=== PATIENT | female | born 1925 | race Caucasian/White ===

== ENCOUNTER 2017-11-14 11:19 | Inpatient (IN) | payer MEDICARE ==
[~2017-11-14] VITALS: Ht 157.5 cm; Wt 69.9 kg
[2017-11-14] VITALS (13 sets, daily range): BP systolic 111–132; BP diastolic 53–70
[2017-11-14] MEDS ORDERED: SODIUM CHLORIDE 0.9% 1000ML 1,000 ML IV STA (11:29)
[2017-11-14 11:53] LABS: BASOPHILS # (AUTO) 0.1 (0.0-0.1); BASOPHILS % 0.8 % (0.0-1.0); EOSINOPHILS # (AUTO) 0.5 (0.0-0.4); EOSINOPHILS % 5.9 % (0.0-6.0); HEMATOCRIT 32.8 % (34.2-44.1); HEMOGLOBIN 11.3 g/dL (12.0-16.0); LYMPHOCYTES # (AUTO) 1.9 (1.0-3.2); LYMPHOCYTES % 24.9 % (18.0-39.1); MEAN CORPUSCULAR HEMOGLOBIN 31.6 pg (28-32); MEAN CORPUSCULAR HGB CONC 34.5 g/dL (31-35); MEAN CORPUSCULAR VOLUME 91.6 fL (81-99); MONOCYTES # (AUTO) 0.8 (0.2-0.8); MONOCYTES % 10.2 % (4.4-11.3); NEUTROPHILS # (AUTO) 4.4 (2.1-6.9); NEUTROPHILS % 57.5 % (38.7-80.0); PLATELET COUNT 333 x10e3/uL (140-360); RED BLOOD COUNT 3.58 x10e6/uL (3.6-5.1); RED CELL DISTRIBUTION WIDTH 13.6 % (11.7-14.4)
[2017-11-14] MEDS ORDERED: LIDOCAINE 1% W/EPINEPHRINE 20 ML VIAL ONE (11:53)
[2017-11-14 12:05] LABS: INR 0.93; PROTHROMBIN TIME 11.7 seconds (11.9-14.5)
[2017-11-14 12:06] LABS: PARTIAL THROMBOPLASTIN TIME 28.6 seconds (23.8-35.5)
--- NOTE | 2017-11-14 12:08 | Diagnostic Imaging Report ---
Examination: Single AP view of the chest. COMPARISON: None. INDICATION: Pneumothorax IMPRESSION: 1. Lines and Tubes: None 2. Lungs are well-inflated. Large right-sided pneumothorax. Blunting of the right lateral costophrenic sulcus with obscuration of the left hemidiaphragm, consistent with right pleural effusion and associated atelectasis. Mild prominence of the interstitial markings in the left lung, likely reflecting chronic interstitial changes. 3. Cardiomediastinal silhouette is normal. Pulmonary vasculature is normal. 4. No acute bony abnormalities. 5. Findings discussed with EVANGELISTA Estevez at ER December 15, 2017 at 1205 hours Signed by: Dr. Emiliano Matthew M.D. on 11/14/2017 12:05 PM
[2017-11-14 12:12] LABS: ALBUMIN 4.2 g/dL (3.5-5.0); ALBUMIN/GLOBULIN RATIO 1.4 (0.8-2.0); ALKALINE PHOSPHATASE 83 IU/L (40-150); ANION GAP 17.3 mmol/L (8-16); BLOOD UREA NITROGEN 43 mg/dL (7-26); BUN/CREATININE RATIO 23 (6-25); CALCIUM 9.2 mg/dL (8.4-10.2); CARBON DIOXIDE 16 mmol/L (22-29); CHLORIDE 94 mmol/L (98-107); CREATINE KINASE 100 IU/L (29-168); CREATININE, SERUM 1.87 mg/dL (0.57-1.11); EST GLOMERULAR FILTRATION RATE 25 ML/MIN (60-); GLUCOSE 101 mg/dL (74-118); POTASSIUM 3.3 mmol/L (3.5-5.1); SODIUM 124 mmol/L (136-145)
[2017-11-14] MEDS ORDERED: HYDROMORPHONE 1MG/1ML INJ ONE ×2 (12:14→13:33)
[2017-11-14 12:15] LABS: ALANINE AMINOTRANSFERASE < 6 IU/L (0-55)
[2017-11-14] MEDS ORDERED: LORAZEPAM INJ 2 MG/ML VIAL ONE ×2 (12:15→19:32)
[2017-11-14] MEDS ORDERED: HYDROMORPHONE 1MG/1ML INJ IV STA ×2 (12:36→13:22)
[2017-11-14] MEDS ORDERED: LORAZEPAM INJ 2 MG/ML VIAL IV ONE (12:45)
--- NOTE | 2017-11-14 13:02 | Diagnostic Imaging Report ---
Examination: Single AP view of the chest. COMPARISON: 11/14/2017 at 11:29 AM INDICATION: Post chest tube placement DISCUSSION: See impression IMPRESSION: 1. Interval placement of a right-sided chest tube, with the tip projecting over the lateral aspect of the right upper hemithorax. The sidehole projects at the level of the lateral thoracic wall. Advancement by 3-4 cm is suggested. 2. Persistent large right hydropneumothorax with leftward mediastinal shift. Findings were discussed with Dr. Lizarraga of the emergency center at 12:55 PM 11/14/2017. Signed by: Dr. Johnson Spears M.D. on 11/14/2017 12:59 PM
--- NOTE | 2017-11-14 13:48 | Diagnostic Imaging Report ---
Examination: Single AP view of the chest. COMPARISON: AP chest 11/14/2017 INDICATION: Pneumothorax status post chest tube placement IMPRESSION: 1. Lines and Tubes: Interval advancement of the previously visualized chest tube by approximately 2 cm, with distal tip projecting over the lateral aspect of the right upper hemithorax. 2. Persistent large hydropneumothorax. Interval improvement in leftward mediastinal shift 3. Cardiomediastinal silhouette is normal. Pulmonary vasculature is normal. 4. No acute bony abnormalities. Signed by: Dr. Emiliano Matthew M.D. on 11/14/2017 1:45 PM
[2017-11-14] MEDS: ONDANSETRON HCL INJ 2 MG/ML VIAL IV PRN ×2 (15:00→15:10)
[2017-11-14] MEDS ORDERED: ONDANSETRON HCL INJ 2 MG/ML VIAL ONE (15:04)
[2017-11-14] MEDS ORDERED: HYDROMORPHONE 1MG/1ML INJ IV PRN (15:15)
[2017-11-14] MEDS ORDERED: ONDANSETRON HCL INJ 2 MG/ML VIAL IV STA (16:24)
[2017-11-14] MEDS ORDERED: MORPHINE SULFATE 2 MG/ML SYR IV STA (16:24)
[2017-11-14] MEDS ORDERED: AMLODIPINE BESYL5 MG PO (16:39)
[2017-11-14] MEDS ORDERED: LEVOTHYROXINE75 MCG PO (16:39)
[2017-11-14] MEDS ORDERED: TRIAMTERENE-HCTZ1 EA PO (16:39)
[2017-11-14] MEDS ORDERED: PROPRANOLOL HCL40 MG PO (16:39)
[2017-11-14] MEDS ORDERED: TYLENOL EXTRA500 MG PO (16:39)
[2017-11-14] MEDS ORDERED: NEXIUM40 MG PO (16:39)
[2017-11-14] MEDS ORDERED: [UNRECOGNIZED DRUG - OTHER] PO (16:39)
[2017-11-14] MEDS ORDERED: ALPRAZOLAM0.25 MG PO (16:39)
[2017-11-14] MEDS ORDERED: SINEMET 25-1001 EACH PO (16:39)
[2017-11-14] MEDS ORDERED: PROPRANOLOL HCL80 MG PO (16:39)
[2017-11-14] MEDS ORDERED: MELATONIN3 MG PO (16:39)
[2017-11-14] MEDS ORDERED: AMITIZA24 MCG PO (16:39)
[2017-11-14] MEDS: SODIUM CHLORIDE 0.9% 1000ML 1,000 ML IV SCH (16:48)
[2017-11-14] MEDS ORDERED: HYDROMORPHONE 1MG/1ML INJ IV ONE (18:55)
--- NOTE | 2017-11-14 19:27 | Diagnostic Imaging Report ---
EXAMINATION: CHEST SINGLE (PORTABLE) 11/14/2017 6:51 PM COMPARISON: Multiple prior radiographs on 11/14/2017 INDICATION: Patient pulled out chest tube DISCUSSION: LINES: Interval removal of right chest tube LUNGS AND PLEURA: Unchanged large right hydropneumothorax. Right lung collapse may be slightly worse than before. No mediastinal shift. The left lung is clear. HEART AND MEDIASTINUM: The cardiomediastinal silhouette is unremarkable. Atherosclerotic calcification of the aorta BONES AND SOFT TISSUES: No acute osseous lesion. The soft tissues are normal. IMPRESSION: Status post removal of the right chest tube with persistent large right hydropneumothorax. No significant mediastinal shift. Ashok Arriola MD Signed by: Dr. Ashok Arriola M.D. on 11/14/2017 7:24 PM
--- NOTE | 2017-11-14 20:20 | Diagnostic Imaging Report ---
EXAMINATION: CHEST SINGLE (PORTABLE) 11/14/2017 7:43 PM COMPARISON: Multiple prior radiographs from 11/14/2017 INDICATION: Reinsertion of chest tube DISCUSSION: LINES: Right sided chest tube has been replaced. The tip projects over the right lung apex LUNGS AND PLEURA: There has been reexpansion of the right lung. There may be a tiny residual right apical pneumothorax. Small right pleural effusion is unchanged. The left lung is clear. HEART AND MEDIASTINUM: The cardiomediastinal silhouette is unremarkable. BONES AND SOFT TISSUES: No acute osseous lesion. The soft tissues are normal. IMPRESSION: Status post reinsertion of the right chest tube with good reexpansion of the right lung. There may be a tiny residual right apical pneumothorax. Small right pleural effusion is unchanged. Ashok Arriola MD Signed by: Dr. Ashok Arriola M.D. on 11/14/2017 8:17 PM
[2017-11-15] VITALS (61 sets, daily range): BP systolic 93–147; BP diastolic 40–80
--- NOTE | 2017-11-15 00:55 | Consultation ---
DATE OF CONSULTATION: No dictation, length (00:01). Job#: [id number] CHARLIE
--- NOTE | 2017-11-15 01:45 | Consultation ---
DATE OF CONSULTATION: November 14, 2017 PULMONARY CONSULTATION REASON FOR THE CONSULT: Pneumothorax. HPI: Ms. Jaramillo is 89-year-old female. She had a fall a month ago and saw Dr. Ruano in the office and she was having progressive shortness of breath and weakness. In the emergency room, she was found to have large right-sided pneumothorax and patient underwent a chest tube placement. She is currently denying any complaints of chest pain, nausea, vomiting. REVIEW OF SYSTEMS: GENERAL: Denies any fever, chills. HEAD: Denies any head trauma. ENT: Denies any earache. CVS: Denies any chest pain. RESPIRATORY: Shortness of breath. GI: Denies any nausea, vomiting. The rest of the review of systems are negative except as in HPI. PAST MEDICAL HISTORY: Hypertension, diabetes patient reports. PAST SURGICAL HISTORY: Multiple surgeries, exploratory laparotomy for bowel perforation. Patient had thyroid surgery. Also has surgery for renal cancer. FAMILY AND SOCIAL HISTORY: She does not smoke, does not drink. PHYSICAL EXAMINATION: VITAL SIGNS: Temperature 98.8, pulse of 84, blood pressure 154/69, respiratory rate of 18, O2 sat 94% on 3 liters. HEENT: Head atraumatic, normocephalic. NECK: Supple. CHEST: Reduced air entry on the right side, otherwise clear to auscultation bilaterally. HEART: S1 and S2 audible. ABDOMEN: Soft, nontender, nondistended. EXTREMITIES: No pedal edema. NEUROLOGICAL: Awake and alert. No focal neurologic deficit. LABS: White count of 7000, hemoglobin 11.3, platelets 333,000. Chemistry: Sodium 124, potassium 3.3, chloride 94, BUN 43, creatinine 1.87. ASSESSMENT: Ms. Jaramillo is 89-year-old female who presented after a fall. The fall was a month ago. Patient has chest tube placement. Post chest tube placement, the x-ray is showing that possibly she has trapped lung. Chest tube has been dislodged now and is placing another chest tube. PLAN: 1. Chest tube for pneumothorax. Likely has trapped lung because of the trauma a month ago. I will do a CT scan to further evaluate. 2. Continue analgesics for pain control. 3. Hyponatremia and acute renal insufficiency, currently stable. Continue the patient on IV hydration. Thank you for this consult. Job#: [id number]
[2017-11-15] MEDS: SODIUM CHLORIDE 0.9% 1000ML 1,000 ML IV SCH ×2 (03:02→13:31)
[2017-11-15 04:47] LABS: BASOPHILS % 0.5 % (0.0-1.0); EOSINOPHILS # (AUTO) 0.4 (0.0-0.4); EOSINOPHILS % 5.1 % (0.0-6.0); HEMATOCRIT 30.2 % (34.2-44.1); HEMOGLOBIN 10.2 g/dL (12.0-16.0); LYMPHOCYTES # (AUTO) 1.4 (1.0-3.2); LYMPHOCYTES % 17.1 % (18.0-39.1); MEAN CORPUSCULAR HEMOGLOBIN 31.6 pg (28-32); MEAN CORPUSCULAR HGB CONC 33.8 g/dL (31-35); MEAN CORPUSCULAR VOLUME 93.5 fL (81-99); MONOCYTES # (AUTO) 0.7 (0.2-0.8); NEUTROPHILS # (AUTO) 5.4 (2.1-6.9); NEUTROPHILS % 67.8 % (38.7-80.0); PLATELET COUNT 298 x10e3/uL (140-360); RED BLOOD COUNT 3.23 x10e6/uL (3.6-5.1)
[2017-11-15 05:13] LABS: ANION GAP 14.7 mmol/L (8-16); CALCIUM 8.2 mg/dL (8.4-10.2); CREATININE, SERUM 1.45 mg/dL (0.57-1.11)
[2017-11-15 05:23] LABS: POTASSIUM 2.7 mmol/L (3.5-5.1)
[2017-11-15] MEDS: POTASSIUM CHLORIDE 20 MEQ TAB CR PO SCH ×2 (05:55→11:48)
--- NOTE | 2017-11-15 06:04 | Diagnostic Imaging Report ---
CHEST SINGLE (PORTABLE), 11/15/2017 7:00 AM Technique: CHEST SINGLE (PORTABLE) Comparison: Previous day Clinical history: Pneumothorax Findings: Stable appearance of the cardiac silhouette, bones, soft tissues. Prior vertebroplasty. Impression: 1. Lines/Tubes: Stable right chest tube. 2. Persistent small right hydropneumothorax with tiny apical air component. Associated right basilar atelectasis or reexpansion edema. Signed by: Dr Norma Boyd MD on 11/15/2017 6:01 AM
[2017-11-15] MEDS ORDERED: POTASSIUM CHLORIDE 20 MEQ TAB CR PO ONE (11:47)
[2017-11-15] MEDS: FAMOTIDINE 20 MG/2 ML VIAL IV SCH ×2 (11:48→20:36)
[2017-11-15] MEDS: ACETAMINOPHEN 325 MG TAB PO PRN (11:48)
[2017-11-15] MEDS ORDERED: FAMOTIDINE 20 MG/2 ML VIAL IV SCH (17:00)
[2017-11-15] MEDS: ALPRAZOLAM 0.25 MG TAB PO SCH (20:36)
[2017-11-15] MEDS: PROPRANOLOL HCL 40 MG TAB PO SCH (20:44)
[2017-11-15] MEDS: CARBIDOPA/LEVODOPA 25/250 TAB PO SCH (20:44)
[2017-11-15] MEDS ORDERED: LORAZEPAM INJ 2 MG/ML VIAL IV ONE (22:30)
[2017-11-16] VITALS (21 sets, daily range): BP systolic 109–185; BP diastolic 60–106
[2017-11-16] MEDS: SODIUM CHLORIDE 0.9% 1000ML 1,000 ML IV SCH ×2 (01:00→17:24)
[2017-11-16 04:46] LABS: BASOPHILS % 0.6 % (0.0-1.0); EOSINOPHILS # (AUTO) 0.4 (0.0-0.4); HEMATOCRIT 27.5 % (34.2-44.1); HEMOGLOBIN 9.2 g/dL (12.0-16.0); LYMPHOCYTES # (AUTO) 1.3 (1.0-3.2); LYMPHOCYTES % 19.8 % (18.0-39.1); MEAN CORPUSCULAR HEMOGLOBIN 31.2 pg (28-32); MEAN CORPUSCULAR HGB CONC 33.5 g/dL (31-35); MEAN CORPUSCULAR VOLUME 93.2 fL (81-99); MONOCYTES # (AUTO) 0.6 (0.2-0.8); MONOCYTES % 9.5 % (4.4-11.3); NEUTROPHILS # (AUTO) 4.2 (2.1-6.9); NEUTROPHILS % 63.6 % (38.7-80.0); PLATELET COUNT 267 x10e3/uL (140-360); RED BLOOD COUNT 2.95 x10e6/uL (3.6-5.1); RED CELL DISTRIBUTION WIDTH 14.1 % (11.7-14.4)
[2017-11-16 05:09] LABS: ANION GAP 12.3 mmol/L (8-16); CALCIUM 8.2 mg/dL (8.4-10.2); CREATININE, SERUM 0.95 mg/dL (0.57-1.11); MAGNESIUM 1.4 MG/DL (1.3-2.1); POTASSIUM 3.3 mmol/L (3.5-5.1)
[2017-11-16] MEDS: LEVOTHYROXINE SODIUM 75 MCG TAB PO SCH (05:29)
[2017-11-16] MEDS: ACETAMINOPHEN 325 MG TAB PO PRN ×2 (05:46→15:00)
[2017-11-16] MEDS: FAMOTIDINE 20 MG/2 ML VIAL IV SCH ×2 (08:23→20:29)
[2017-11-16] MEDS: AMLODIPINE BESYLATE 5 MG TAB PO SCH (08:23)
[2017-11-16] MEDS: CARBIDOPA/LEVODOPA 25/250 TAB PO SCH ×3 (08:23→20:29)
[2017-11-16] MEDS: LUBIPROSTONE 24 MCG CAP PO SCH (08:23)
[2017-11-16] MEDS: ALPRAZOLAM 0.25 MG TAB PO SCH ×2 (08:24→17:24)
--- NOTE | 2017-11-16 09:38 | Diagnostic Imaging Report ---
PROCEDURE: A single AP view of the chest. COMPARISON: Patients [facility], DX, CHEST SINGLE (PORTABLE), 11/15/2017, 5:26. INDICATIONS: CHEST PAIN FINDINGS: Lines/tubes: Right-sided chest tube has been withdrawn and tip now appears to be outside of the pleural space. Lungs: No pulmonary edema. Focal opacity in the right lung base likely representing pneumonia versus atelectasis. Pleura: Small right pleural effusion. No large pneumothorax. Heart and mediastinum: The heart and the mediastinum are unremarkable. Bones: No acute bony abnormality. IMPRESSION: 1. Right-sided chest tube has been withdrawn and now lies outside of the pleural space. 2. persistent right basilar opacity compatible with atelectasis most likely. Eleazar Montoya D.O. Dictated by: Eleazar Montoya D.O. on 11/16/2017 at 9:44 Electronically approved by: Eleazar Montoya D.O. on 11/16/2017 at 9:44
[2017-11-16] MEDS ORDERED: FLUCONAZOLE 100 MG TAB PO NR (10:00)
[2017-11-16] MEDS: POTASSIUM CHLORIDE 20 MEQ TAB CR PO SCH (10:41)
--- NOTE | 2017-11-16 12:29 | Diagnostic Imaging Report ---
EXAMINATION: CT scan of the chest without contrast. TECHNIQUE: Spiral CT images of the chest were performed from the lung apices to the level of the adrenal glands. No intravenous contrast was administered . Coronal and sagittal reformatted images were obtained. COMPARISON: Single AP chest 11/16/2017 CLINICAL HISTORY:Pneumothorax DISCUSSION: ABSENCE OF INTRAVENOUS CONTRAST DECREASES SENSITIVITY FOR DETECTION OF FOCAL LESIONS AND VASCULAR PATHOLOGY. LINES/TUBES: Right-sided chest tube has distal tip in the chest wall soft tissues/subpectoral region (series 3, image 34), outside the lung. LUNGS AND AIRWAYS: Moderate compressive atelectasis of the right lower lobe. Linear opacities in the right upper lobe and right middle lobe likely reflect subsegmental atelectasis. Mild compressive atelectasis of the left lower lobe. Patchy wedge-shaped densities in the right apex measure fluid density and likely represent residual fluid. No pulmonary nodules or masses. Airways are clear, without endobronchial lesions. PLEURA: Moderate right and small left pleural effusions. No significant pneumothorax is visualized. HEART AND MEDIASTINUM: 1.0 cm hypodense nodule in the left thyroid lobe (series 2, image 19). Mild cardiomegaly. Atherosclerotic calcification of the aortic valves, coronary arteries and thoracic aorta. Aorta is not aneurysmal. Main pulmonary artery is normal in caliber. LYMPH NODES: There is no mediastinal, hilar or axillary lymphadenopathy. ABDOMEN: Limited unenhanced views of the upper abdomen show no abnormality within the visualized liver, spleen, pancreas, or left kidney. Thickening of the left adrenal gland, without discrete focal lesion.. BONES AND SOFT TISSUES: No aggressive lytic lesions. Mottled appearance of the thoracic and lumbar vertebral bodies, which may be secondary to marked osteopenia. Vertebral plasty changes at L1. Anterior wedge deformity of the T11 vertebral body. Soft tissues are unremarkable. IMPRESSION: 1. Right-sided chest tube has distal tip in the right chest wall soft tissues/subpectoral area, outside the lung. 2. No pneumothorax is visualized. 3. Moderate right and small left pleural effusions with moderate right and mild left lower lobe compressive atelectasis. 4. Subsegmental atelectasis in the right upper lobe and right middle lobe. 5. 1.0 cm nodule in the left lower lobe. Dedicated thyroid ultrasound be helpful for further evaluation, if clinically indicated. 6. Mottled appearance of the thoracic and lumbar vertebral bodies is likely secondary to marked osteopenia, given the prior compression deformities. Consider bone scan, particularly if there is prior history or clinical concern for neoplasm. Signed by: Dr. Emiliano Matthew M.D. on 11/16/2017 12:25 PM
[2017-11-16] MEDS: ONDANSETRON HCL INJ 2 MG/ML VIAL IV PRN (19:05)
[2017-11-16] MEDS ORDERED: HALOPERIDOL LACTATE 5 MG/ML VIAL IV ONE (20:15)
[2017-11-16] MEDS: PROPRANOLOL HCL 40 MG TAB PO SCH (20:29)
[2017-11-17] VITALS (24 sets, daily range): BP systolic 123–176; BP diastolic 59–99
[2017-11-17] MEDS: ACETAMINOPHEN 325 MG TAB PO PRN ×2 (01:55→19:07)
[2017-11-17] MEDS: SODIUM CHLORIDE 0.9% 1000ML 1,000 ML IV SCH (02:29)
[2017-11-17 05:31] LABS: ANION GAP 13.5 mmol/L (8-16); BLOOD UREA NITROGEN 14 mg/dL (7-26); BUN/CREATININE RATIO 17 (6-25); CALCIUM 8.5 mg/dL (8.4-10.2); CARBON DIOXIDE 20 mmol/L (22-29); CHLORIDE 106 mmol/L (98-107); CREATININE, SERUM 0.83 mg/dL (0.57-1.11); EST GLOMERULAR FILTRATION RATE > 60 ML/MIN (60-); GLUCOSE 101 mg/dL (74-118); POTASSIUM 3.5 mmol/L (3.5-5.1); SODIUM 136 mmol/L (136-145)
[2017-11-17] MEDS: LEVOTHYROXINE SODIUM 75 MCG TAB PO SCH (06:07)
[2017-11-17] MEDS: ONDANSETRON HCL INJ 2 MG/ML VIAL IV PRN (07:41)
[2017-11-17] MEDS: LUBIPROSTONE 24 MCG CAP PO SCH (08:00)
[2017-11-17] MEDS: FAMOTIDINE 20 MG/2 ML VIAL IV SCH ×2 (08:36→22:00)
[2017-11-17] MEDS: CARBIDOPA/LEVODOPA 25/250 TAB PO SCH ×3 (08:37→22:00)
[2017-11-17] MEDS: ALPRAZOLAM 0.25 MG TAB PO SCH ×2 (08:37→16:05)
[2017-11-17] MEDS: POTASSIUM CHLORIDE 20 MEQ TAB CR PO SCH (08:37)
[2017-11-17] MEDS: AMLODIPINE BESYLATE 5 MG TAB PO SCH (08:37)
--- NOTE | 2017-11-17 09:13 | Diagnostic Imaging Report ---
PROCEDURE: A single AP view of the chest. COMPARISON: Chest CT 11/16/17 and chest radiograph 11/16/17. INDICATIONS: PLEURAL EFFUSION FINDINGS: Lines/tubes: Right sided chest tube, previously noted to be outside the pleural space, has been removed. Lungs/pleura: The lungs are well inflated. Moderate right and small left pleural effusion with associated bibasilar opacities, likely atelectasis. No evidence of pulmonary edema or pneumothorax. Heart and mediastinum: The cardiomediastinal silhouette is unchanged. Bones: No acute bony abnormality. IMPRESSION: Interval removal of right sided chest tube. No evidence of pneumothorax. Similar appearance of moderate right and small left pleural effusions with associated bibasilar opacities, likely atelectasis. Dictated by: ERIN MONTANA M.D. on 11/17/2017 at 9:19 Electronically approved by: ERIN MONTANA M.D. on 11/17/2017 at 9:19
[2017-11-17] MEDS: DOCUSATE SODIUM 100 MG CAP PO SCH ×2 (09:28→16:05)
[2017-11-17 09:45] LABS: CLARITY,URINE CLOUDY (CLEAR); COLOR,URINE YELLOW (YELLOW); LEUKOCYTE ESTERASE ,URINE 2+ (NEGATIVE); NITRITE,URINE NEGATIVE (NEGATIVE)
[2017-11-17 09:46] LABS: BILIRUBIN,URINE NEGATIVE (NEGATIVE); KETONES,URINE NEGATIVE (NEGATIVE); PROTEIN,URINE DIPSTICK 2+ (NEGATIVE); URINE UROBILINOGEN 0.2 mg/dL (0.2 - 1)
[2017-11-17] MEDS: QUETIAPINE FUMARATE 25 MG TAB PO SCH ×2 (09:58→22:00)
[2017-11-17 10:22] LABS: AMORPHOUS SEDIMENT,URINE RARE (FEW); BACTERIA,URINE FEW /HPF; EPITHELIAL CELLS,URINE FEW /LPF; WBC,URINE (MAN) 21-50 /HPF (0-5)
[2017-11-17] MEDS ORDERED: LIDOCAINE HCL 2% LOCAL 20 ML VIAL ONE (13:32)
[2017-11-17 16:33] LABS: BODY FLUID APPEARANCE CLOUDY; BODY FLUID COLOR RED; BODY FLUID TYPE PLEURAL
[2017-11-17 17:14] LABS: RBC,BODY FLUID 100980 cells/uL; WBC,BODY FLUID 297 cells/uL
[2017-11-17 17:39] LABS: EOSINOPHILS,BODY FLUID 33 %; LYMPHOCYTES,BODY FLUID 16 %; MONO/MACROPHG,BODY FLUID 2 %; NEUTROPHILS,BODY FLUID 28 %; OTHER CELLS,BODY FLUID 21 %
--- NOTE | 2017-11-17 17:55 | Diagnostic Imaging Report ---
EXAMINATION: CHEST SINGLE (PORTABLE) INDICATION: \S\f/u thora to right \[id number] \S\[id number] COMPARISON: Chest radiograph 11/17/[address] chest 11/16/2017 FINDINGS: AP view TUBES and LINES: None. LUNGS: Lungs are well inflated. Bibasilar atelectasis, increased on the right. There is no evidence of pneumonia or pulmonary edema. PLEURA: Decreased size of now small of the right pleural effusion, status post thoracentesis. Unchanged small left pleural effusion. Interval decrease in size of the right apical pneumothorax, now with upper 5.2 cm compared to 7.6 cm on prior exam. HEART AND MEDIASTINUM: The cardiac silhouette is within normal limits. The pulmonary arteries appear enlarged.. BONES AND SOFT TISSUES: No acute osseous lesion. Soft tissues are unremarkable. UPPER ABDOMEN: No free air under the diaphragm. IMPRESSION: Small right pleural effusion is unchanged, status post thoracentesis. Decreased size of the right apical pneumothorax, now measuring 5.2 cm in gap compared to 7.6 cm on prior exam. Signed by: Dr. Yasmin Maciel M.D. on 11/17/2017 4:41 PM
[2017-11-17] MEDS ORDERED: MAGNESIUM HYDROXIDE 30 ML UDC PO ONE (20:30)
[2017-11-17] MEDS: PROPRANOLOL HCL 40 MG TAB PO SCH (22:00)
[2017-11-17] MEDS: MELATONIN 3 MG TAB PO SCH (22:00)
[2017-11-18] VITALS (10 sets, daily range): BP systolic 134–165; BP diastolic 62–86
[2017-11-18 00:36] LABS: CLARITY,URINE CLOUDY (CLEAR); COLOR,URINE YELLOW (YELLOW); LEUKOCYTE ESTERASE ,URINE TRACE (NEGATIVE)
[2017-11-18 00:37] LABS: BACTERIA,URINE MANY /HPF; BILIRUBIN,URINE NEGATIVE (NEGATIVE); EPITHELIAL CELLS,URINE FEW /LPF; KETONES,URINE NEGATIVE (NEGATIVE); NITRITE,URINE POSITIVE (NEGATIVE); PROTEIN,URINE DIPSTICK 1+ (NEGATIVE); URINE UROBILINOGEN 0.2 mg/dL (0.2 - 1); WBC,URINE (MAN) >50 /HPF (0-5)
[2017-11-18] MEDS: ACETAMINOPHEN 325 MG TAB PO PRN ×2 (04:39→16:46)
[2017-11-18 04:44] LABS: BASOPHILS # (AUTO) 0.1 (0.0-0.1); BASOPHILS % 0.7 % (0.0-1.0); EOSINOPHILS # (AUTO) 0.7 (0.0-0.4); EOSINOPHILS % 10.7 % (0.0-6.0); HEMATOCRIT 27.6 % (34.2-44.1); LYMPHOCYTES # (AUTO) 1.6 (1.0-3.2); MEAN CORPUSCULAR HEMOGLOBIN 31.6 pg (28-32); MEAN CORPUSCULAR HGB CONC 32.6 g/dL (31-35); MONOCYTES # (AUTO) 0.7 (0.2-0.8); MONOCYTES % 9.8 % (4.4-11.3); NEUTROPHILS # (AUTO) 3.8 (2.1-6.9); NEUTROPHILS % 55.4 % (38.7-80.0); PLATELET COUNT 286 x10e3/uL (140-360); RED BLOOD COUNT 2.85 x10e6/uL (3.6-5.1); RED CELL DISTRIBUTION WIDTH 14.7 % (11.7-14.4)
[2017-11-18 04:48] LABS: MEAN CORPUSCULAR VOLUME 96.8 fL (81-99)
[2017-11-18 05:09] LABS: ANION GAP 12.9 mmol/L (8-16); BLOOD UREA NITROGEN 13 mg/dL (7-26); BUN/CREATININE RATIO 15 (6-25); CALCIUM 8.7 mg/dL (8.4-10.2); CARBON DIOXIDE 23 mmol/L (22-29); CHLORIDE 106 mmol/L (98-107); CREATININE, SERUM 0.86 mg/dL (0.57-1.11); EST GLOMERULAR FILTRATION RATE > 60 ML/MIN (60-); GLUCOSE 95 mg/dL (74-118); POTASSIUM 3.9 mmol/L (3.5-5.1); SODIUM 138 mmol/L (136-145)
[2017-11-18] MEDS: LEVOTHYROXINE SODIUM 75 MCG TAB PO SCH (05:26)
[2017-11-18] MEDS: ALPRAZOLAM 0.25 MG TAB PO SCH ×2 (08:23→16:46)
[2017-11-18] MEDS: LUBIPROSTONE 24 MCG CAP PO SCH (08:23)
[2017-11-18] MEDS: CARBIDOPA/LEVODOPA 25/250 TAB PO SCH ×3 (08:23→22:13)
[2017-11-18] MEDS: AMOXICILLIN/CLAVULANATE K 875 MG TAB PO SCH ×2 (08:23→22:13)
[2017-11-18] MEDS: AMLODIPINE BESYLATE 5 MG TAB PO SCH (08:23)
[2017-11-18] MEDS: FAMOTIDINE 20 MG/2 ML VIAL IV SCH ×2 (08:23→22:13)
[2017-11-18] MEDS: QUETIAPINE FUMARATE 25 MG TAB PO SCH ×2 (08:23→22:13)
[2017-11-18] MEDS: DOCUSATE SODIUM 100 MG CAP PO SCH ×2 (08:23→16:35)
[2017-11-18] MEDS: POTASSIUM CHLORIDE 20 MEQ TAB CR PO SCH (08:25)
[2017-11-18] MEDS: ONDANSETRON HCL INJ 2 MG/ML VIAL IV PRN (08:48)
[2017-11-18] MEDS: MELATONIN 3 MG TAB PO SCH (22:13)
[2017-11-18] MEDS: PROPRANOLOL HCL 40 MG TAB PO SCH (22:14)
[2017-11-19] VITALS (8 sets, daily range): BP systolic 128–154; BP diastolic 62–68
[2017-11-19] MEDS: LEVOTHYROXINE SODIUM 75 MCG TAB PO SCH (05:14)
[2017-11-19] MEDS: FAMOTIDINE 20 MG/2 ML VIAL IV SCH ×2 (08:14→20:02)
[2017-11-19] MEDS: LUBIPROSTONE 24 MCG CAP PO SCH (08:14)
[2017-11-19] MEDS: CARBIDOPA/LEVODOPA 25/250 TAB PO SCH ×3 (08:30→20:04)
[2017-11-19] MEDS: POTASSIUM CHLORIDE 20 MEQ TAB CR PO SCH (08:30)
[2017-11-19] MEDS: QUETIAPINE FUMARATE 25 MG TAB PO SCH ×2 (08:30→20:04)
[2017-11-19] MEDS: AMLODIPINE BESYLATE 5 MG TAB PO SCH (08:30)
[2017-11-19] MEDS: AMOXICILLIN/CLAVULANATE K 875 MG TAB PO SCH ×2 (08:30→20:02)
[2017-11-19] MEDS: DOCUSATE SODIUM 100 MG CAP PO SCH ×2 (08:30→15:33)
[2017-11-19] MEDS: ALPRAZOLAM 0.25 MG TAB PO SCH ×2 (08:31→16:38)
[2017-11-19] MEDS ORDERED: BISACODYL 10 MG SUPP PR PRN (09:30)
[2017-11-19] MEDS: ACETAMINOPHEN 325 MG TAB PO PRN ×3 (10:21→20:52)
[2017-11-19] MEDS: PROPRANOLOL HCL 40 MG TAB PO SCH (20:04)
[2017-11-19] MEDS: MELATONIN 3 MG TAB PO SCH (20:04)
[2017-11-20] VITALS (8 sets, daily range): BP systolic 128–179; BP diastolic 64–81
[2017-11-20] MEDS: LEVOTHYROXINE SODIUM 75 MCG TAB PO SCH (05:19)
[2017-11-20] MEDS: AMOXICILLIN/CLAVULANATE K 875 MG TAB PO SCH ×2 (09:43→20:48)
[2017-11-20] MEDS: DOCUSATE SODIUM 100 MG CAP PO SCH ×2 (09:43→18:09)
[2017-11-20] MEDS: AMLODIPINE BESYLATE 5 MG TAB PO SCH (09:43)
[2017-11-20] MEDS: CARBIDOPA/LEVODOPA 25/250 TAB PO SCH ×3 (09:43→20:48)
[2017-11-20] MEDS: LUBIPROSTONE 24 MCG CAP PO SCH (09:43)
[2017-11-20] MEDS: QUETIAPINE FUMARATE 25 MG TAB PO SCH ×2 (09:43→20:48)
[2017-11-20] MEDS: FAMOTIDINE 20 MG/2 ML VIAL IV SCH (09:43)
[2017-11-20] MEDS: POTASSIUM CHLORIDE 20 MEQ TAB CR PO SCH (09:44)
[2017-11-20] MEDS: ALPRAZOLAM 0.25 MG TAB PO SCH ×2 (09:44→18:09)
[2017-11-20] MEDS ORDERED: ENOXAPARIN 30 MG/0.3 ML SYR SC STA (11:59)
[2017-11-20] MEDS: FAMOTIDINE 20 MG TAB PO SCH (15:49)
[2017-11-20] MEDS: MELATONIN 3 MG TAB PO SCH (20:48)
[2017-11-20] MEDS: PROPRANOLOL HCL 40 MG TAB PO SCH (20:49)
[2017-11-21] VITALS: BP 155/70
[2017-11-21] MEDS: ACETAMINOPHEN 325 MG TAB PO PRN (00:05)
[2017-11-21 03:47] VITALS: BP 143/62
[2017-11-21 03:50] VITALS: BP 143/62
[2017-11-21 04:00] VITALS: BP 143/62
[2017-11-21 06:03] LABS: ALBUMIN 2.5 g/dL (3.5-5.0); ALBUMIN/GLOBULIN RATIO 0.8 (0.8-2.0); ALKALINE PHOSPHATASE 89 IU/L (40-150); BLOOD UREA NITROGEN 17 mg/dL (7-26); BUN/CREATININE RATIO 16 (6-25); CALCIUM 9.1 mg/dL (8.4-10.2); CARBON DIOXIDE 27 mmol/L (22-29); CHLORIDE 102 mmol/L (98-107); CREATININE, SERUM 1.08 mg/dL (0.57-1.11); EST GLOMERULAR FILTRATION RATE 48 ML/MIN (60-); GLUCOSE 106 mg/dL (74-118); SODIUM 139 mmol/L (136-145)
[2017-11-21] MEDS: LEVOTHYROXINE SODIUM 75 MCG TAB PO SCH (06:06)
[2017-11-21] MEDS: DOCUSATE SODIUM 100 MG CAP PO SCH (06:06)
[2017-11-21 06:13] LABS: ALANINE AMINOTRANSFERASE < 6 IU/L (0-55)
[2017-11-21 08:31] VITALS: BP 184/81
[2017-11-21] MEDS: LUBIPROSTONE 24 MCG CAP PO SCH (08:34)
[2017-11-21] MEDS: AMLODIPINE BESYLATE 5 MG TAB PO SCH (08:34)
[2017-11-21] MEDS: AMOXICILLIN/CLAVULANATE K 875 MG TAB PO SCH (08:34)
[2017-11-21] MEDS: FAMOTIDINE 20 MG TAB PO SCH (08:34)
[2017-11-21] MEDS: QUETIAPINE FUMARATE 25 MG TAB PO SCH (09:00)
[2017-11-21] MEDS: ALPRAZOLAM 0.25 MG TAB PO SCH (09:00)
[2017-11-21] MEDS: CARBIDOPA/LEVODOPA 25/250 TAB PO SCH (09:00)
[2017-11-21] MEDS ORDERED: ASPIRIN EC81 MG PO (09:33)
--- NOTE | 2017-11-21 10:58 | Progress Note ---
DATE: The patient has been doing well. Denies any complaints of chest pain or shortness of breath. PHYSICAL EXAMINATION VITAL SIGNS: Temperature 96.9, pulse 73, blood pressure 143/62. CHEST: Clear to auscultation bilaterally. HEART: S1 and S2 audible. ABDOMEN: Soft. EXTREMITIES: No pedal edema. NEURO: Awake, alert. LABS: Reviewed. ASSESSMENT 1. Traumatic pneumothorax, symptomatic hemothorax, which has resolved. 2. Shortness of breath that has resolved. 3. Hypothyroidism, stable. PLAN: Patient can be discharged home to follow up with me in 3 to 4 weeks. Continue current medications. Discharge planning per Dr. Ruano. Job#: [id number]
[2017-11-21] MEDS ORDERED: PROCARDIA XL30 MG PO (11:02)
[2017-11-21 11:25] VITALS: BP 145/64
--- NOTE | 2017-11-21 13:26 | Discharge Summary ---
DISCHARGE DIAGNOSES: 1. Superficial phlebitis of the left hand. 2. Pneumothorax, resolved. 3. Hypertension, controlled. HISTORY OF PRESENT ILLNESS: Ms. Jaramillo is a pleasant 89-year-old lady, well known to me from the office, who has past medical history significant for hypertension and a remote history of neuroendocrine tumor. She also has significant generalized anxiety disorder. She was seen in my office and was found to have respiratory distress and pain. X-rays of the chest showed a large right pneumothorax, which was apparently traumatic as she had fallen a few weeks prior. She was admitted to the intensive care unit. She was treated with a chest tube and drainage of bloody fluid, which achieved re-expansion of the lung. A consultation was requested with Dr. Álvarez, pneumology, who guided her care. During the current admission, there were episodes of delirium that were managed with a small dose of quetiapine and continuation of the patient's low-dose antianxiety medication. She did well with physical therapy and the day before her discharge the Weber catheter was removed successfully. During the admission, she developed some swelling of the left wrist and hand. A venous Doppler was significant for superficial phlebitis, and this has been treated conservatively with Epsom salt compresses and elevation of the extremity. She is being discharged home in stable condition. Home health has been called for PT/OT. A prescription has been given for aspirin 81 mg, and she is to follow up in my office in 3 days. ORLANDO ALLEN MD Job#: [id number] EV
[2017-11-21] MEDS ORDERED: ENOXAPARIN 30 MG/0.3 ML SYR SC SCH (17:00)
[2017-11-21] MEDS ORDERED: NIFEDIPINE CR 30 MG TAB PO SCH (21:00)
--- NOTE | 2017-11-22 11:29 | Diagnostic Imaging Report ---
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 Julio Jerome Pre-operative diagnosis: Right pleural effusion Post-operative diagnosis: Right pleural effusion Conscious Sedation: The patient's heart rate and pulse oximetry were continuously monitored by IR nursing. Additional Medications: Lidocaine 1% for local anesthesia Estimated blood loss: Minimal Specimens: 750 cc pleural fluid Implants: None DISCUSSION: Informed consent was obtained from the patient and documented in the medical record. The patient was placed in the upright position. The right posterior chest was prepped and draped in standard sterile fashion. 1% lidocaine was infiltrated into the skin and subcutaneous tissues for local anesthesia. Then under continuous sonographic guidance a 5 Fr catheter was advanced into the right pleural space. The catheter was advanced off the needle and connected to vacuum bottle with subsequent evacuation of 750 cc of sanguinous fluid. The catheter was removed and a sterile, occlusive dressing was applied. Sample was sent to the lab. The patient tolerated the procedure well. FINDINGS: Moderate to large right pleural effusion. IMPRESSION: Ultrasound-guided right diagnostic and therapeutic thoracentesis with removal of 750 cc of sanguinous fluid. Signed by: Dr. Julio Jerome MD on 11/22/2017 11:26 AM
== END 2017-11-21 12:46 | disposition home health service (06) | DRG 200 ==
LOC: ER 11:19 → ERHOLD 15:19 → ICU 21:00 → MED/SURG 11-18 08:42
PROVIDERS: ADMIT Internal Medicine; ATTEND Internal Medicine
PROC: 0W9930Z Drainage of Right Pleural Cavity with Drainage Device, Percutaneous Approach (ICD-10-PCS; 2017-11-14)
PROC: 0W993ZX Drainage of Right Pleural Cavity, Percutaneous Approach, Diagnostic (ICD-10-PCS; principal; 2017-11-17)
DX: S27.0XXA Traumatic pneumothorax, initial encounter (principal); S22.31XA Fracture of one rib, right side, initial encounter for closed fracture; N17.9 Acute kidney failure, unspecified; E87.1 Hypo-osmolality and hyponatremia; N39.0 Urinary tract infection, site not specified; T85.628A Displacement of other specified internal prosthetic devices, implants and grafts, initial encounter; J90 Pleural effusion, not elsewhere classified; F05 Delirium due to known physiological condition; Z91.81 History of falling; E03.9 Hypothyroidism, unspecified; I10 Essential (primary) hypertension; F41.1 Generalized anxiety disorder; I80.8 Phlebitis and thrombophlebitis of other sites; E11.9 Type 2 diabetes mellitus without complications; F03.90 Unspecified dementia, unspecified severity, without behavioral disturbance, psychotic disturbance, mood disturbance, and anxiety
CPT/HCPCS: 32551; 32555; 36415; 71045; 71250; 74470; 80048; 80053; 81001; 82550; 82553; 82948; 83615; 83735; 84157; 84484; 85025; 85610; 85730; 87086; 87186; 89051; 93005; 93971; 97139; 99285; J1170; J1630; J1650; J2001; J2060; J2405; J7030